=== PATIENT | female | born 2000 | race Caucasian/White ===

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

== ENCOUNTER 2019-01-02 16:58 | Emergency (ER) | payer MEDICAID ==
[~2019-01-02] VITALS: Ht 154.9 cm; Wt 45.2 kg
[2019-01-02 17:06] VITALS: PULSE 73; Ht 154.9 cm; Wt 45.2 kg
[2019-01-02] MEDS ORDERED: SOD CHLORIDE 0.9% 1,000 ML IV STA (17:46)
[2019-01-02] MEDS ORDERED: morphine 2 MG INJ IV STA (17:46)
[2019-01-02] MEDS ORDERED: ONDANSETRON 4 MG INJ IV STA (17:49)
--- NOTE | 2019-01-02 20:15 | ERD ---
ER Documentation Chief Complaint Chief Complaint ABD PAIN X 2 WEEKS WITH TAMMY HPI 18-year-old female presents for repeat exam. Patient states that she was here last week but symptoms have persisted despite taking antibiotics. States that she was also here on Thursday because the pain was very acute but she left without being seen. Says the pain is in the epigastric area but also has a history of pelvic pain. In addition she has a history of STDs. Denies any right lower quadrant tenderness, vomiting, diarrhea, fevers, flank pain. ROS All systems reviewed and are negative except as per history of present illness. Medications Home Meds Active Scripts Metronidazole* (Flagyl*) 500 Mg Tablet, 500 MG PO BID for 7 Days, TAB Prov:LM KANG 01/02/19 Acetaminophen* (Tylophen*) 500 Mg Capsule, 1 CAP PO Q6H PRN for PAIN AND OR ELEVATED TEMP, #20 CAP Prov:PASILABAN,ELIZABETHAR F 12/31/18 Famotidine* (Pepcid*) 20 Mg Tablet, 40 MG PO DAILY for 30 Days, TAB Prov:PASILABAN,ELIZABETHAR F 12/31/18 Ondansetron Hcl* (Zofran*) 4 Mg Tablet, 4 MG PO Q8H PRN for NAUSEA AND/OR VOMITING, #30 TAB Prov:PASILABAN,ELIZABETHAR F 12/31/18 Cephalexin* (Keflex*) 500 Mg Capsule, 500 MG PO TID for 7 Days, CAP Prov:PASILABAN,KLAR F 12/31/18 Reported Medications Albuterol Sulfate* (Proair HFA*) 8.5 Gm Hfa.aer.ad 06/30/12 Allergies Allergies: Coded Allergies: No Known Allergy (Unverified , 01/02/19) PMhx/Soc History of Surgery: Yes (BROKEN LEFT ARM) Anesthesia Reaction: No Hx Neurological Disorder: No Hx Respiratory Disorders: Yes (asthma) Hx Cardiac Disorders: No Hx Psychiatric Problems: No Hx Miscellaneous Medical Probl: No Hx Alcohol Use: No Hx Substance Use: No Hx Tobacco Use: No Smoking Status: Never smoker FmHx Family History: No diabetes, No coronary disease, No other Physical Exam Vitals Vital Signs Date Temp Pulse Resp B/P (MAP) Pulse Ox O2 O2 Flow FiO2 Time Delivery Rate 01/02/19 98.2 16 113/72 100 21:15 (86) 01/02/19 97.4 73 18 116/74 98 17:06 (88) Physical Exam Const: No acute distress Head: Atraumatic Eyes: Normal Conjunctiva ENT: Normal External Ears, Nose and Mouth. Neck: Full range of motion. No meningismus. Resp: Clear to auscultation bilaterally Cardio: Regular rate and rhythm, no murmurs Abd: Soft, non tender, non distended. Normal bowel sounds. Negative Culver's. Negative McBurney's. Skin: No petechiae or rashes Back: No midline or flank tenderness Ext: No cyanosis, or edema Neur: Awake and alert Psych: Normal Mood and Affect Pelvic: Perform with hog scalder present. There was milky white discharge noted. Cervix was atraumatic. There was no cervical motion tenderness. Result Diagram: 01/02/19 1802 01/02/19 1802 Results 24 hrs Laboratory Tests Test 01/02/19 18:02 01/02/19 18:03 White Blood Count 6.6 10^3/ul Red Blood Count 4.92 10^6/ul Hemoglobin 13.9 g/dl Hematocrit 42.1 % Mean Corpuscular Volume 85.6 fl Mean Corpuscular Hemoglobin 28.3 pg Mean Corpuscular Hemoglobin Concent 33.0 g/dl Red Cell Distribution Width 11.6 % Platelet Count 296 10^3/UL Mean Platelet Volume 9.6 fl Immature Granulocytes % 0.200 % Neutrophils % 42.7 % Lymphocytes % 43.1 % Monocytes % 6.3 % Eosinophils % 7.5 % Basophils % 0.2 % Nucleated Red Blood Cells % 0.0 /100WBC Immature Granulocytes # 0.010 10^3/ul Neutrophils # 2.8 10^3/ul Lymphocytes # 2.8 10^3/ul Monocytes # 0.4 10^3/ul Eosinophils # 0.5 10^3/ul Basophils # 0.0 10^3/ul Nucleated Red Blood Cells # 0.0 10^3/ul Urine Color YELLOW Urine Clarity CLOUDY Urine pH 6.0 Urine Specific [place] 1.019 Urine Ketones NEGATIVE mg/dL Urine Nitrite NEGATIVE mg/dL Urine Bilirubin NEGATIVE mg/dL Urine Urobilinogen NEGATIVE mg/dL Urine Leukocyte Esterase NEGATIVE Divina/ul Urine Microscopic RBC 1 /HPF Urine Microscopic WBC 1 /HPF Urine Squamous Epithelial Cells MANY /HPF Urine Mucus FEW /HPF Urine Hemoglobin NEGATIVE mg/dL Urine Glucose NEGATIVE mg/dL Urine Total Protein NEGATIVE mg/dl Sodium Level 142 mmol/L Potassium Level 3.8 mmol/L Chloride Level 104 mmol/L Carbon Dioxide Level 31 mmol/L Anion Gap 7 Blood Urea Nitrogen 12 mg/dl Creatinine 0.53 mg/dl Est Glomerular Filtrat Rate mL/min > 60 mL/min Glucose Level 74 mg/dl Calcium Level 9.6 mg/dl Total Bilirubin 1.1 mg/dl Direct Bilirubin 0.00 mg/dl Indirect Bilirubin 1.1 mg/dl Aspartate Amino Transf (AST/SGOT) 18 IU/L Alanine Aminotransferase (ALT/SGPT) 13 IU/L Alkaline Phosphatase 74 IU/L Total Protein 8.3 g/dl Albumin 4.7 g/dl Globulin 3.60 g/dl Albumin/Globulin Ratio 1.30 Lipase 89 U/L POC Beta HCG, Qualitative NEGATIVE Current Medications Medications Dose Sig/Dean Start Time Status Last (Trade) Ordered Route PRN Stop Time Admin Dose Reason Admin Sodium 1,000 ml @ Q1H STAT 01/02/19 DC 01/02/19 Chloride 1,000 mls/hr IV 17:46 18:07 01/02/19 18:45 Morphine 2 mg ONCE STAT 01/02/19 DC 01/02/19 Sulfate IV 17:46 18:08 (morphine) 01/02/19 17:50 Ondansetron 4 mg ONCE STAT 01/02/19 DC 01/02/19 HCl (Zofran IV 17:49 18:08 Inj) 01/02/19 17:51 IV Flush 10 ml STK-MED 01/02/19 DC (NS 10 ml) ONCE .ROUTE 20:22 01/02/19 20:23 Sodium 100 ml @ ud STK-MED 01/02/19 DC Chloride ONCE .ROUTE 20:22 01/02/19 20:23 Iohexol 150 ml STK-MED 01/02/19 DC (Omnipaque ONCE .ROUTE 20:22 300mg/ ml) 01/02/19 20:23 Procedures/MDM MDM: Given patient's history of pelvic pain as well as abdominal pain I advised her that it would be appropriate to test for cervical motion tenderness. In addition, given patient's history of STDs as well as pelvic pain I felt it was appropriate to to perform a wet mount. I explained to her the reason for doing the exams and the patient agreed to have the exams done. I made clear to the patient that I did not want her to feel pressured to have any exam performed and I was offering my advice based on my clinical judgment however she has an adult could feel free to deny any exam that she felt uncomfortable with. This was all explained with a hog scalder present. Patient still decided to have the exams performed. After PID was ruled out due to lack of cervical motion tenderness, explained to patient that I felt it would be appropriate to perform a CT due to the patient's chronic nature of pain in the amount of times that she is come to the ER for the same complaint. Risks and benefits of CT were explained to the patient and patient decided that she would want to have the CT performed. CT results within normal limits. Clue cells were seen on wet mount. Patient treated with metronidazole. I have low suspicion for appendicitis, cholecystitis, esophageal rupture, PID, or any other emergent condition. Patient possibly suffering gastritis. Patient was advised to follow-up with GI due to the chronic nature of her abdominal pain. Patient discharged with strict ER precautions. Patient advised to follow up with PMD. All questions answered at discharge. Departure Diagnosis: Primary Impression: Abdominal pain Additional Impression: Bacterial vaginosis Condition: Stable LM KANG January 02, 2019 20:15
[2019-01-02] MEDS ORDERED: IOHEXOL 300MG/ML 150 ML BTL ONE (20:22)
[2019-01-02] MEDS ORDERED: SOD CHLORIDE 0.9% 100 ML ONE (20:22)
[2019-01-02] MEDS ORDERED: METR500T PO (21:00)
[2019-01-02 21:15] VITALS: BP 113/72; RESP 16
== END 2019-01-02 21:16 | disposition home or self-care (01) ==
LOC: FTE 16:58
DX: N76.0 Acute vaginitis (principal); R10.2 Pelvic and perineal pain; J45.909 Unspecified asthma, uncomplicated
CPT/HCPCS: 36415; 74177; 80053; 81001; 81025; 83690; 85025; 87086; 87210; 96361; 96374; 96375; J2270; J2405; J7030; Q9967; Z7502; Z7610